=== PATIENT | male | born 1960 | race Caucasian/White ===

== ENCOUNTER 2017-07-17 18:10 | Inpatient (IN) | payer MEDICAID, OTHER ==
[~2017-07-17] VITALS: Ht 172.7 cm; Wt 71.7 kg
[2017-07-17 18:12] VITALS: BP 148/72
[2017-07-17] MEDS ORDERED: LORazepam Inj 2mg/ml 1ml IV ONE (18:15)
[2017-07-17] MEDS ORDERED: [UNRECOGNIZED DRUG - REMARK] (18:21)
--- NOTE | 2017-07-17 19:12 | Emergency Room Report ---
History of Present Illness General Chief Complaint: Fever Source: Patient Present Illness HPI 56-year-old male no significant past medical history presents with fever, chills , cough, runny nose, headache for 1 days. Pt still eating/drinking well. No recent travel. No SOB, cp, abdominal pain, n/v/d. Patient denies any drug or alcohol use, however EMS states when they arrived his house, there was drug needles, and has remained states that he had been doing meth The patient currently awake and alert, not complaining of any neck pain. States that he does have a throbbing headache. Patient states that he gets headaches all the time. Not the worse headache of his life Allergies: Coded Allergies: No Known Allergies (Unverified , 07/17/17) Patient History Past Medical History: see triage record Past Surgical History: none Pertinent Family History: none Reviewed Nursing Documentation: PMH: Agreed, PSxH: Agreed Nursing Documentation-PM Past Medical History: No History, Except For Hx Hypertension: Yes Review of Systems All Other Systems: negative except mentioned in HPI Physical Exam Vital Signs Date Time Temp Pulse Resp B/P (MAP) Pulse Ox O2 Delivery O2 Flow Rate FiO2 07/17/17 18:02 101.8 133 25 169/93 95 Room Air Sp02 EP Interpretation: reviewed, normal General Appearance: alert, GCS 15, mild distress, other - diaphoretic, but awake and alert Head: normocephalic, atraumatic Eyes: bilateral eye normal inspection, bilateral eye PERRL, bilateral eye EOMI ENT: normal ENT inspection, normal pharynx, normal voice, moist mucus membranes Neck: normal inspection, full range of motion, supple Respiratory: normal inspection, lungs clear, normal breath sounds, no respiratory distress, no retraction, no wheezing, speaking full sentences, chest symmetrical Cardiovascular #1: no edema, tachycardia Cardiovascular #2: 2+ radial (R), 2+ radial (L) Gastrointestinal: normal inspection, non tender, soft, non-distended, no guarding Genitourinary: no CVA tenderness Musculoskeletal: normal inspection, back normal, normal range of motion, non- tender Neurologic: normal inspection, alert, oriented x3, responsive, 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 Not hypoxic. PLAN: IV access, labs, lactate, troponin, Blood/Urine Cx, Abx, IVF Anticipate admission to Tele vs. JOSE CC time also includes review of labs, review of EMR, discussion with family and paperwork from SNF, d/w hospitalist CC could include dosing of pressors, additional Abx CC time does not include procedures Medical Decision Making Diagnostic Impression: Primary Impression: Sepsis Additional Impressions: UTI (urinary tract infection) Methamphetamine abuse ER Course 56-year-old male, fever, cough, headache DDX: Viral URI / pneumonia Toxicology, versus withdrawal Plan: Labs, IV fluids ER course: Patient received fluids and Tylenol ceftriaxone for UTI Sepsis Re-examination Time: 7:50PM VS: Temp 99 HR 1191 BP 150/90 RR 20 CVS: RRR Respiratory: Lungs clear bilaterally Peripheral pulses: 2+ radial Capillary refill: <2 seconds Skin exam: warm, dry, no rash, not mottled Disposition: Pt admitted to telemetry DW Dr Sue Please note that this Emergency Department Report was dictated using [employer] Systemspsych[employer] educational technology software, occasionally this can lead to erroneous entry secondary to interpretation by the dictation equipment EKG Diagnostic Results EP Interpretation: Yes Rate: Tachycardic Rhythm: NSR ST Segments: No acute changes ASA given to patient: No Rhythm Strip EP Interpretation: Yes Rate: 120 Rhythm: NSR, no PVCs, no ectopy Chest X-ray CXR: Ordered: Yes 1 view Indication: Chest pain EP interpretation: Yes Interpretation: Cardiomegaly, no infiltrate noted Impression: No acute disease Electronically signed by Mehrdad Anand MD Laboratory Tests Test 07/17/17 18:40 07/17/17 19:15 White Blood Count 16.6 K/UL (4.8-10.8) H Red Blood Count 6.45 M/UL (4.70-6.10) H Hemoglobin 19.1 G/DL (14.2-18.0) *H Hematocrit 57.1 % (42.0-52.0) H Mean Corpuscular Volume 88 FL (80-99) Mean Corpuscular Hemoglobin 29.6 PG (27.0-31.0) Mean Corpuscular Hemoglobin Concent 33.5 G/DL (32.0-36.0) Red Cell Distribution Width 12.8 % (11.6-14.8) Platelet Count 221 K/UL (150-450) Mean Platelet Volume 7.5 FL (6.5-10.1) Neutrophils (%) (Auto) 84.5 % (45.0-75.0) H Lymphocytes (%) (Auto) 5.2 % (20.0-45.0) L Monocytes (%) (Auto) 9.7 % (1.0-10.0) Eosinophils (%) (Auto) 0.0 % (0.0-3.0) Basophils (%) (Auto) 0.6 % (0.0-2.0) Sodium Level 136 MMOL/L (136-145) Potassium Level 4.0 MMOL/L (3.5-5.1) Chloride Level 97 MMOL/L (98-107) L Carbon Dioxide Level 30 MMOL/L (21-32) Anion Gap 9 mmol/L (5-15) Blood Urea Nitrogen 16 mg/dL (7-18) Creatinine 1.7 MG/DL (0.55-1.30) H Estimate Glomerular Filtration Rate 42.2 mL/min (>60) Glucose Level 111 MG/DL (74-106) H Lactic Acid Level 1.70 mmol/L (0.66-2.22) Calcium Level 9.4 MG/DL (8.5-10.1) Total Bilirubin 0.3 MG/DL (0.2-1.0) Aspartate Amino Transferase (AST) 32 U/L (15-37) Alanine Aminotransferase (ALT) 40 U/L (12-78) Alkaline Phosphatase 66 U/L (46-116) Troponin I 0.052 ng/mL (0.000-0.056) Total Protein 7.2 G/DL (6.4-8.2) Albumin 3.2 G/DL (3.4-5.0) L Globulin 4.0 g/dL Albumin/Globulin Ratio 0.8 (1.0-2.7) L Salicylates Level 13.3 ug/mL (2.8-20) Acetaminophen Level < 2 MCG/ML (10-30) L Serum Alcohol < 3 mg/dL Urine Color Yellow Urine Appearance Cloudy Urine pH 6 (4.5-8.0) Urine Specific [place] 1.020 (1.005-1.035) Urine Protein 3+ (NEGATIVE) H Urine Glucose (UA) Negative (NEGATIVE) Urine Ketones Negative (NEGATIVE) Urine Occult Blood 3+ (NEGATIVE) H Urine Nitrite Negative (NEGATIVE) Urine Bilirubin Negative (NEGATIVE) Urine Urobilinogen 1 MG/DL (0.0-1.0) H Urine Leukocyte Esterase 3+ (NEGATIVE) H Urine RBC 2-4 /HPF (0 - 0) H Urine WBC Tntc /HPF (0 - 0) H Urine Squamous Epithelial Cells None /LPF (NONE/OCC) Urine Bacteria Moderate /HPF (NONE) H Urine Opiates Screen Pending Urine Barbiturates Screen Pending Phencyclidine (PCP) Screen Pending Urine Amphetamines Screen Pending Urine Benzodiazepines Screen Pending Urine Cocaine Screen Pending Urine Marijuana (THC) Screen Pending Last Vital Signs Date Time Temp Pulse Resp B/P (MAP) Pulse Ox O2 Delivery O2 Flow Rate FiO2 07/17/17 18:12 101.8 127 24 148/72 97 Room Air Disposition: ADMITTED INPATIENT Condition: Mehrdad Hernandez M.D. Jul 17, 2017 19:12
[2017-07-17 19:24] LABS: BASOPHILS % (AUTO) 0.6 % (0.0-2.0); HEMATOCRIT 57.1 % (42.0-52.0); LYMPHOCYTES % (AUTO) 5.2 % (20.0-45.0); MEAN CORPUSCULAR VOLUME 88 FL (80-99); MONOCYTES % (AUTO) 9.7 % (1.0-10.0); NEUTROPHILS % (AUTO) 84.5 % (45.0-75.0); PLATELET COUNT 221 K/UL (150-450); RED BLOOD COUNT 6.45 M/UL (4.70-6.10); RED CELL DISTRIBUTION WIDTH 12.8 % (11.6-14.8); WHITE BLOOD COUNT 16.6 K/UL (4.8-10.8)
[2017-07-17 19:28] LABS: HEMOGLOBIN 19.1 G/DL (14.2-18.0)
[2017-07-17 19:30] VITALS: BP 155/102
[2017-07-17 19:34] LABS: APPEARANCE,URINE CLOUDY; BILIRUBIN, URINE NEGATIVE (NEGATIVE); GLUCOSE, URINE (UA) NEGATIVE (NEGATIVE); KETONES,URINE NEGATIVE (NEGATIVE); LEUKOCYTE ESTERASE ,URINE 3+ (NEGATIVE); NITRITE,URINE NEGATIVE (NEGATIVE); PH,URINE 6 (4.5-8.0); PROTEIN,URINE 3+ (NEGATIVE); UROBILINOGEN,URINE 1 MG/DL (0.0-1.0)
[2017-07-17 19:35] LABS: ANION GAP 9 mmol/L (5-15); BLOOD UREA NITROGEN 16 mg/dL (7-18); CALCIUM 9.4 MG/DL (8.5-10.1); CARBON DIOXIDE 30 MMOL/L (21-32); CHLORIDE 97 MMOL/L (98-107); CREATININE 1.7 MG/DL (0.55-1.30); SODIUM 136 MMOL/L (136-145)
[2017-07-17 19:35] LABS: COLOR,URINE YELLOW
[2017-07-17 19:50] LABS: ALANINE AMINOTRANSFERASE 40 U/L (12-78); ALBUMIN 3.2 G/DL (3.4-5.0); ALBUMIN/GLOBULIN RATIO 0.8 (1.0-2.7); ALKALINE PHOSPHATASE 66 U/L (46-116); ASPARTATE AMINO TRANSFERASE 32 U/L (15-37); BILIRUBIN,TOTAL 0.3 MG/DL (0.2-1.0)
[2017-07-17] MEDS ORDERED: cefTRIAXone 1 GM in NS 55 ML IVPB ONE (20:00)
[2017-07-17 20:30] VITALS: BP 133/82
[2017-07-17 21:30] VITALS: BP 126/79
[2017-07-17 22:30] VITALS: BP 123/79
[2017-07-17 23:30] VITALS: BP 127/81
[2017-07-17] MEDS ORDERED: Miralax 17gm pkt ORAL PRN (23:30)
[2017-07-17] MEDS ORDERED: Albuterol/Ipratropium 3ml neb HHN PRN (23:30)
[2017-07-17] MEDS ORDERED: Morphine Sulfate 2mg/ml Inj IVP PRN (23:30)
[2017-07-18] MEDS ORDERED: Vancomycin 1 GM in D5W 275 ML IV SCH (00:30)
[2017-07-18 01:30] VITALS: BP 132/81
[2017-07-18 02:30] VITALS: BP 140/86
[2017-07-18] MEDS: Vancomycin 1250mg/D5W 250ml IVPB SCH (04:46)
[2017-07-18 08:00] VITALS: BP 148/103
[2017-07-18] MEDS: Heparin 5000 units/ml inj SUBQ SCH ×2 (08:27→20:37)
[2017-07-18] MEDS ORDERED: Cefepime HCl 2 GM in D5W 110 ML IV SCH (09:00)
--- NOTE | 2017-07-18 09:27 | History and Physical ---
History of Present Illness General Date patient seen: Jul 18, 2017 Time patient seen: 09:00 Reason for Hospitalization: Fever, headache Present Illness HPI 56y/old male with no significant PMH presented with fever, chills, cough, runny nose, headache for 1 week. Symptoms have progressively worsen in 1 week. Headache 8/10, constant, + nausea and vomiting, neck pain, photophobia and phonophobia. +sick contacts. Upon arrival febrile, tachycardic, tachypneic Lab work revealed [id number] UA+ pyuria, mod.bacteria, no urinary symptoms urine tox screen + amphetamines, BZD CXR negative troponin negative ECG-ST, no acute ischemic changes BUN/creat-16/1.7 Lactic acid-1.7 rapid influenza screen test negative No SOB, CP, abdominal pain, n/v/d. No recent traveling Paramedics reported seeing needles in the house, but patient denied meth use Patient was admitted for further management Allergies: Coded Allergies: No Known Allergies (Unverified , 07/17/17) Medication History Miscellaneous Medications [unk BP med], (Reported) Patient History History Provided By: Patient Healthcare decision maker Resuscitation status Full Code Advanced Directive on File Past Medical/Surgical History Past Medical/Surgical History: (1) Methamphetamine abuse Review of Systems Constitutional: Reports: fever, malaise, weakness Eye: Reports: nose congestion ENT: Reports: nasal discharge Respiratory: Reports: cough Cardiovascular: Reports: no symptoms Gastrointestinal: Reports: no symptoms Genitourinary: Reports: no symptoms Musculoskeletal: Reports: no symptoms Skin: Reports: no symptoms Psychiatric: Reports: no symptoms Neurological: Reports: see HPI Endocrine: Reports: no symptoms Hematologic/Lymphatic: Reports: no symptoms Physical Exam General Appearance: WD/WN, other - in mild distress Lines, tubes and drains: peripheral HEENT: normocephalic, atraumatic, anicteric, mucous membranes moist, thrush - tongue with white patches Neck: normal alignment, normal inspection Respiratory/Chest: lungs clear, normal breath sounds, no respiratory distress, no accessory muscle use Cardiovascular/Chest: normal peripheral pulses, regular rhythm, tachycardia - ST on tele Abdomen: normal bowel sounds, non tender, soft Extremities: normal range of motion, non-tender, no calf tenderness, normal capillary refill Skin Exam: warm/dry Neurologic: alert, oriented x 3, responsive Musculoskeletal: normal muscle bulk Last 24 Hour Vital Signs Date Time Temp Pulse Resp B/P (MAP) Pulse Ox O2 Delivery O2 Flow Rate FiO2 07/18/17 04:00 114 07/18/17 02:45 98.1 95 19 140/86 99 Room Air 1.0 07/18/17 02:30 98.1 95 19 140/86 99 Room Air 07/18/17 01:30 98.3 99 18 132/81 98 Room Air 07/17/17 23:30 98.1 97 22 127/81 99 Nasal Cannula 1.0 07/17/17 22:30 98.3 102 18 123/79 100 Nasal Cannula 1.0 07/17/17 21:30 98.6 107 23 126/79 98 Nasal Cannula 1.0 07/17/17 20:30 98.9 112 20 133/82 98 Nasal Cannula 1.0 07/17/17 19:52 99.1 07/17/17 19:30 99.1 120 23 155/102 99 Nasal Cannula 1.0 07/17/17 18:12 101.8 127 24 148/72 97 Room Air 07/17/17 18:02 101.8 133 25 169/93 95 Room Air Intake and Output 07/17/17 07/18/17 19:00 07:00 Intake Total 100 ml 2055 ml Output Total 150 ml Balance 100 ml 1905 ml Intake Oral 100 ml IV Total 2055 ml Output Urine Total 150 ml Laboratory Tests Test 07/17/17 18:40 07/17/17 19:15 White Blood Count 16.6 K/UL (4.8-10.8) H Red Blood Count 6.45 M/UL (4.70-6.10) H Hemoglobin 19.1 G/DL (14.2-18.0) *H Hematocrit 57.1 % (42.0-52.0) H Mean Corpuscular Volume 88 FL (80-99) Mean Corpuscular Hemoglobin 29.6 PG (27.0-31.0) Mean Corpuscular Hemoglobin Concent 33.5 G/DL (32.0-36.0) Red Cell Distribution Width 12.8 % (11.6-14.8) Platelet Count 221 K/UL (150-450) Mean Platelet Volume 7.5 FL (6.5-10.1) Neutrophils (%) (Auto) 84.5 % (45.0-75.0) H Lymphocytes (%) (Auto) 5.2 % (20.0-45.0) L Monocytes (%) (Auto) 9.7 % (1.0-10.0) Eosinophils (%) (Auto) 0.0 % (0.0-3.0) Basophils (%) (Auto) 0.6 % (0.0-2.0) Sodium Level 136 MMOL/L (136-145) Potassium Level 4.0 MMOL/L (3.5-5.1) Chloride Level 97 MMOL/L (98-107) L Carbon Dioxide Level 30 MMOL/L (21-32) Anion Gap 9 mmol/L (5-15) Blood Urea Nitrogen 16 mg/dL (7-18) Creatinine 1.7 MG/DL (0.55-1.30) H Estimat Glomerular Filtration Rate 42.2 mL/min (>60) Glucose Level 111 MG/DL (74-106) H Lactic Acid Level 1.70 mmol/L (0.66-2.22) Calcium Level 9.4 MG/DL (8.5-10.1) Total Bilirubin 0.3 MG/DL (0.2-1.0) Aspartate Amino Transf (AST/SGOT) 32 U/L (15-37) Alanine Aminotransferase (ALT/SGPT) 40 U/L (12-78) Alkaline Phosphatase 66 U/L (46-116) Troponin I 0.052 ng/mL (0.000-0.056) Total Protein 7.2 G/DL (6.4-8.2) Albumin 3.2 G/DL (3.4-5.0) L Globulin 4.0 g/dL Albumin/Globulin Ratio 0.8 (1.0-2.7) L Salicylates Level 13.3 ug/mL (2.8-20) Acetaminophen Level < 2 MCG/ML (10-30) L Serum Alcohol < 3 mg/dL Urine Color Yellow Urine Appearance Cloudy Urine pH 6 (4.5-8.0) Urine Specific [place] 1.020 (1.005-1.035) Urine Protein 3+ (NEGATIVE) H Urine Glucose (UA) Negative (NEGATIVE) Urine Ketones Negative (NEGATIVE) Urine Occult Blood 3+ (NEGATIVE) H Urine Nitrite Negative (NEGATIVE) Urine Bilirubin Negative (NEGATIVE) Urine Urobilinogen 1 MG/DL (0.0-1.0) H Urine Leukocyte Esterase 3+ (NEGATIVE) H Urine RBC 2-4 /HPF (0 - 0) H Urine WBC Tntc /HPF (0 - 0) H Urine Squamous Epithelial Cells None /LPF (NONE/OCC) Urine Bacteria Moderate /HPF (NONE) H Urine Opiates Screen Negative (NEGATIVE) Urine Barbiturates Screen Negative (NEGATIVE) Phencyclidine (PCP) Screen Negative (NEGATIVE) Urine Amphetamines Screen Positive (NEGATIVE) H Urine Benzodiazepines Screen Positive (NEGATIVE) H Urine Cocaine Screen Negative (NEGATIVE) Urine Marijuana (THC) Screen Negative (NEGATIVE) Height (Feet): 5 Height (Inches): 8.00 Weight (Pounds): 158 Medications Current Medications Medications (Trade) Dose Ordered Sig/Charla Route PRN Reason Start Time Stop Time Status Last Admin Dose Admin Acetaminophen (Tylenol) 650 mg Q4H PRN ORAL fever 07/17/17 23:30 08/16/17 23:29 Albuterol/ Ipratropium (Albuterol/ Ipratropium) 3 ml EVERY 4 HOURS PRN HHN Shortness of Breath 07/17/17 23:30 07/22/17 23:29 Cefepime HCl 2 gm/ Dextrose 110 ml @ 220 mls/hr Q24H IV 07/18/17 09:00 07/25/17 08:59 Heparin Sodium (Porcine) (Heparin 5000 units/ml) 5,000 units EVERY 12 HOURS SUBQ 07/18/17 09:00 08/17/17 08:59 07/18/17 08:27 Morphine Sulfate (Morphine Sulfate) 2 mg EVERY 4 HOURS PRN IVP Moderate Pain (Pain Scale 4-6) 07/17/17 23:30 07/24/17 23:29 07/18/17 08:30 Ondansetron HCl (Zofran) 4 mg Q6H PRN IVP Nausea & Vomiting 07/17/17 23:30 08/16/17 23:29 Phenazopyridine HCl (Pyridium) 100 mg DAILY PRN ORAL dysuria 07/17/17 23:30 08/16/17 23:29 Polyethylene Glycol (Miralax) 17 gm DAILYPRN PRN ORAL Constipation 07/17/17 23:30 08/16/17 23:29 Temazepam (Restoril) 15 mg HSPRN PRN ORAL Insomnia 07/17/17 23:30 07/24/17 23:29 Vancomycin HCl (Vanco rx to dose) 1 ea DAILY PRN MISC per protocol 07/18/17 02:30 08/17/17 02:29 Vancomycin HCl/ Dextrose 250 ml @ 166.667 mls/hr Q24H IVPB 07/18/17 04:00 07/23/17 03:59 07/18/17 04:46 Assessment/Plan Assessment/Plan ASSESSMENT Viral syndrome Probably influenza possible sepsis Headache r/o aseptic meningitis possible UTI JOAQUIN vs CRI tongue with white patches, ? atypical oral thrush amphetamine abuse PLAN OF CARE empiric abx empiric Tamiflu ID and neuro follow CT head stat LP stat with CSF analysis HIV test hepatitis panel serology as per ID empiric Nystatin, per ID - atypical oral thrush, r/o HIV pain management Pyridium prn a/emetic prn DVT prophylaxis monitor renal parameters, lytes, correct lytes as seeded, avoid nephrotoxic case discussed and evaluated by supervising physician Bandar (Willa)Rossana NP Jul 18, 2017 09:27
--- NOTE | 2017-07-18 09:34 | Diagnostic Imaging Report ---
Indication: Chest pain Technique: One view of the chest Comparison: none Findings: Heart is enlarged. Lungs and pleural spaces are clear. There are are postsurgical changes of the left shoulder Impression: Cardiomegaly. No acute process
--- NOTE | 2017-07-18 09:59 | Consultation ---
History of Present Illness General Date patient seen: Jul 18, 2017 Time patient seen: 09:57 Chief Complaint: Fever Present Illness HPI 56 y/o M with hx of HTN presents to ED on 07/17 with fevers, chills, cough, runny nose and SALGUERO. Symptoms have progressively worsen in 1 week. Headache 8/10, constant, with associated nausea and vomiting, neck pain, photophobia and phonophobia. +sick contacts. Denies SOB, CP, abd pain, d, recent travel Patient denies any drug or alcohol use, however EMS states when they arrived his house, there was drug needles, and has remained states that he had been doing meth; however he denied drug use to me. FEbrile up to 101.8, leukocytosis up to 16.6/ Allergies: Coded Allergies: No Known Allergies (Unverified , 07/17/17) Medication History Miscellaneous Medications [unk BP med], (Reported) Patient History Healthcare decision maker Resuscitation status Full Code Advanced Directive on File Patient History Narrative PMhs: as above SH: reviewed Fhx: non contributory Review of Systems All Other Systems: negative except mentioned in HPI Physical Exam Physical Exam Narrative General Appearance: alert,mild distress due to headache Head: normocephalic, atraumatic Eyes: bilateral eye normal inspection, bilateral eye PERRL, bilateral eye EOMI ENT: normal ENT inspection, normal pharynx, normal voice, moist mucus membranes ; tongue with white patches Neck: normal inspection, full range of motion, supple Respiratory: normal inspection, lungs clear, normal breath sounds, no respiratory distress, no retraction, no wheezing, speaking full sentences, chest symmetrical Cardiovascular : no edema, tachycardia) Gastrointestinal: normal inspection, non tender, soft, non-distended, no guarding Genitourinary: no CVA tenderness Musculoskeletal: normal inspection, back normal, normal range of motion, non- tender Skin: flushed skin, blanching in torso and back Last 24 Hour Vital Signs Date Time Temp Pulse Resp B/P (MAP) Pulse Ox O2 Delivery O2 Flow Rate FiO2 07/18/17 09:00 98.1 07/18/17 04:00 114 07/18/17 02:45 98.1 95 19 140/86 99 Room Air 1.0 07/18/17 02:30 98.1 95 19 140/86 99 Room Air 07/18/17 01:30 98.3 99 18 132/81 98 Room Air 07/17/17 23:30 98.1 97 22 127/81 99 Nasal Cannula 1.0 07/17/17 22:30 98.3 102 18 123/79 100 Nasal Cannula 1.0 07/17/17 21:30 98.6 107 23 126/79 98 Nasal Cannula 1.0 07/17/17 20:30 98.9 112 20 133/82 98 Nasal Cannula 1.0 07/17/17 19:52 99.1 07/17/17 19:30 99.1 120 23 155/102 99 Nasal Cannula 1.0 07/17/17 18:12 101.8 127 24 148/72 97 Room Air 07/17/17 18:02 101.8 133 25 169/93 95 Room Air Intake and Output 07/17/17 07/18/17 19:00 07:00 Intake Total 100 ml 2055 ml Output Total 150 ml Balance 100 ml 1905 ml Intake Oral 100 ml IV Total 2055 ml Output Urine Total 150 ml Laboratory Tests Test 07/17/17 18:40 07/17/17 19:15 White Blood Count 16.6 K/UL (4.8-10.8) H Red Blood Count 6.45 M/UL (4.70-6.10) H Hemoglobin 19.1 G/DL (14.2-18.0) *H Hematocrit 57.1 % (42.0-52.0) H Mean Corpuscular Volume 88 FL (80-99) Mean Corpuscular Hemoglobin 29.6 PG (27.0-31.0) Mean Corpuscular Hemoglobin Concent 33.5 G/DL (32.0-36.0) Red Cell Distribution Width 12.8 % (11.6-14.8) Platelet Count 221 K/UL (150-450) Mean Platelet Volume 7.5 FL (6.5-10.1) Neutrophils (%) (Auto) 84.5 % (45.0-75.0) H Lymphocytes (%) (Auto) 5.2 % (20.0-45.0) L Monocytes (%) (Auto) 9.7 % (1.0-10.0) Eosinophils (%) (Auto) 0.0 % (0.0-3.0) Basophils (%) (Auto) 0.6 % (0.0-2.0) Sodium Level 136 MMOL/L (136-145) Potassium Level 4.0 MMOL/L (3.5-5.1) Chloride Level 97 MMOL/L (98-107) L Carbon Dioxide Level 30 MMOL/L (21-32) Anion Gap 9 mmol/L (5-15) Blood Urea Nitrogen 16 mg/dL (7-18) Creatinine 1.7 MG/DL (0.55-1.30) H Estimat Glomerular Filtration Rate 42.2 mL/min (>60) Glucose Level 111 MG/DL (74-106) H Lactic Acid Level 1.70 mmol/L (0.66-2.22) Calcium Level 9.4 MG/DL (8.5-10.1) Total Bilirubin 0.3 MG/DL (0.2-1.0) Aspartate Amino Transf (AST/SGOT) 32 U/L (15-37) Alanine Aminotransferase (ALT/SGPT) 40 U/L (12-78) Alkaline Phosphatase 66 U/L (46-116) Troponin I 0.052 ng/mL (0.000-0.056) Total Protein 7.2 G/DL (6.4-8.2) Albumin 3.2 G/DL (3.4-5.0) L Globulin 4.0 g/dL Albumin/Globulin Ratio 0.8 (1.0-2.7) L Salicylates Level 13.3 ug/mL (2.8-20) Acetaminophen Level < 2 MCG/ML (10-30) L Serum Alcohol < 3 mg/dL Urine Color Yellow Urine Appearance Cloudy Urine pH 6 (4.5-8.0) Urine Specific [place] 1.020 (1.005-1.035) Urine Protein 3+ (NEGATIVE) H Urine Glucose (UA) Negative (NEGATIVE) Urine Ketones Negative (NEGATIVE) Urine Occult Blood 3+ (NEGATIVE) H Urine Nitrite Negative (NEGATIVE) Urine Bilirubin Negative (NEGATIVE) Urine Urobilinogen 1 MG/DL (0.0-1.0) H Urine Leukocyte Esterase 3+ (NEGATIVE) H Urine RBC 2-4 /HPF (0 - 0) H Urine WBC Tntc /HPF (0 - 0) H Urine Squamous Epithelial Cells None /LPF (NONE/OCC) Urine Bacteria Moderate /HPF (NONE) H Urine Opiates Screen Negative (NEGATIVE) Urine Barbiturates Screen Negative (NEGATIVE) Phencyclidine (PCP) Screen Negative (NEGATIVE) Urine Amphetamines Screen Positive (NEGATIVE) H Urine Benzodiazepines Screen Positive (NEGATIVE) H Urine Cocaine Screen Negative (NEGATIVE) Urine Marijuana (THC) Screen Negative (NEGATIVE) Height (Feet): 5 Height (Inches): 8.00 Weight (Pounds): 158 Medications Current Medications Medications (Trade) Dose Ordered Sig/Charla Route PRN Reason Start Time Stop Time Status Last Admin Dose Admin Acetaminophen (Tylenol) 650 mg Q4H PRN ORAL fever 07/17/17 23:30 08/16/17 23:29 Albuterol/ Ipratropium (Albuterol/ Ipratropium) 3 ml EVERY 4 HOURS PRN HHN Shortness of Breath 07/17/17 23:30 07/22/17 23:29 Cefepime HCl 2 gm/ Dextrose 110 ml @ 220 mls/hr Q24H IV 07/18/17 09:00 07/25/17 08:59 07/18/17 09:34 Heparin Sodium (Porcine) (Heparin 5000 units/ml) 5,000 units EVERY 12 HOURS SUBQ 07/18/17 09:00 08/17/17 08:59 07/18/17 08:27 Morphine Sulfate (Morphine Sulfate) 2 mg EVERY 4 HOURS PRN IVP Moderate Pain (Pain Scale 4-6) 07/17/17 23:30 07/24/17 23:29 07/18/17 08:30 Ondansetron HCl (Zofran) 4 mg Q6H PRN IVP Nausea & Vomiting 07/17/17 23:30 08/16/17 23:29 Phenazopyridine HCl (Pyridium) 100 mg DAILY PRN ORAL dysuria 07/17/17 23:30 08/16/17 23:29 Polyethylene Glycol (Miralax) 17 gm DAILYPRN PRN ORAL Constipation 07/17/17 23:30 08/16/17 23:29 Temazepam (Restoril) 15 mg HSPRN PRN ORAL Insomnia 07/17/17 23:30 07/24/17 23:29 Vancomycin HCl (Vanco rx to dose) 1 ea DAILY PRN MISC per protocol 07/18/17 02:30 08/17/17 02:29 Vancomycin HCl/ Dextrose 250 ml @ 166.667 mls/hr Q24H IVPB 07/18/17 04:00 07/23/17 03:59 07/18/17 04:46 Assessment/Plan Assessment/Plan Abx: IV Vanco /3- Cefepime /3- Ceftriaxone x1 07/17 Assessment: Viral syndrome- suspect Influenza despite neg screen test( sensitive only 60-70% ) -? drug withdrawal vs bacteremia; r/o acute HIV -CXR: Cardiomegaly. No acute process -Bcx p HEADACHE- suspect aseptic meningitis to viral process- lower suspicion for bacterial meningitis Fever/leukocytosis Tongue white patches- ?thrush- not classical; r/o HIV pyuria, no UTI symptoms -u/a WBC TNCT, nit neg, leik +3; ucx p JOAQUIN Meth use (denied to me) PLan: -Continue empiric IV Vancomycin #1 and switch Cefepime to Ceftriaxone 2g IV bid pending Bcx and CSF -Start empiric Tamiflu (high suspicion for Flu) -Influenza PCR; droplets precautions -Stat Head CT -Recommend neuro eval and LP -CSF analysis, cx, WNV ab, VDRL -Check: HIV ab and VL, UDS, ESR/CRP, hepatitis panel, WNV ab, RPR -empiric nystatin swallow and monitor tongue lesions if improvement -f/u cx -Monitor CBC/BMP, temperatures Thank you for this consultation. Discussed with RN and primary team. Yamileth Myles M.D. Jul 18, 2017 09:59
[2017-07-18 12:00] VITALS: BP 141/99
[2017-07-18 12:34] LABS: BASOPHILS % (AUTO) 0.8 % (0.0-2.0); EOSINOPHILS % (AUTO) 0.2 % (0.0-3.0); HEMATOCRIT 47.9 % (42.0-52.0); HEMOGLOBIN 15.9 G/DL (14.2-18.0); LYMPHOCYTES % (AUTO) 9.5 % (20.0-45.0); MEAN CORPUSCULAR VOLUME 87 FL (80-99); MONOCYTES % (AUTO) 9.5 % (1.0-10.0); PLATELET COUNT 200 K/UL (150-450); RED BLOOD COUNT 5.48 M/UL (4.70-6.10); RED CELL DISTRIBUTION WIDTH 12.6 % (11.6-14.8); WHITE BLOOD COUNT 8.4 K/UL (4.8-10.8)
[2017-07-18] MEDS ORDERED: Morphine Sulfate 4mg/ml Inj ONE (12:48)
[2017-07-18 12:50] LABS: ALANINE AMINOTRANSFERASE 33 U/L (12-78); ALBUMIN 2.4 G/DL (3.4-5.0); ALBUMIN/GLOBULIN RATIO 0.7 (1.0-2.7); ALKALINE PHOSPHATASE 52 U/L (46-116); ANION GAP 7 mmol/L (5-15); ASPARTATE AMINO TRANSFERASE 22 U/L (15-37); BILIRUBIN,TOTAL 0.2 MG/DL (0.2-1.0); BLOOD UREA NITROGEN 17 mg/dL (7-18); CALCIUM 8.2 MG/DL (8.5-10.1); CARBON DIOXIDE 27 MMOL/L (21-32); CHLORIDE 99 MMOL/L (98-107); CREATININE 1.5 MG/DL (0.55-1.30); SODIUM 133 MMOL/L (136-145)
--- NOTE | 2017-07-18 12:56 | Neurology Progress Note ---
Objective Physical Exam Last Vital Signs Date Time Temp Pulse Resp B/P (MAP) Pulse Ox O2 Delivery O2 Flow Rate FiO2 07/18/17 09:00 98.1 07/18/17 08:00 120 07/18/17 08:00 19 148/103 99 Room Air 07/18/17 02:45 1.0 Laboratory Tests Test 07/17/17 18:40 07/17/17 19:15 07/18/17 12:20 White Blood Count 16.6 K/UL (4.8-10.8) H 8.4 K/UL (4.8-10.8) Red Blood Count 6.45 M/UL (4.70-6.10) H 5.48 M/UL (4.70-6.10) Hemoglobin 19.1 G/DL (14.2-18.0) *H 15.9 G/DL (14.2-18.0) Hematocrit 57.1 % (42.0-52.0) H 47.9 % (42.0-52.0) Mean Corpuscular Volume 88 FL (80-99) 87 FL (80-99) Mean Corpuscular Hemoglobin 29.6 PG (27.0-31.0) 29.0 PG (27.0-31.0) Mean Corpuscular Hemoglobin Concent 33.5 G/DL (32.0-36.0) 33.2 G/DL (32.0-36.0) Red Cell Distribution Width 12.8 % (11.6-14.8) 12.6 % (11.6-14.8) Platelet Count 221 K/UL (150-450) 200 K/UL (150-450) Mean Platelet Volume 7.5 FL (6.5-10.1) 8.1 FL (6.5-10.1) Neutrophils (%) (Auto) 84.5 % (45.0-75.0) H 80.0 % (45.0-75.0) H Lymphocytes (%) (Auto) 5.2 % (20.0-45.0) L 9.5 % (20.0-45.0) L Monocytes (%) (Auto) 9.7 % (1.0-10.0) 9.5 % (1.0-10.0) Eosinophils (%) (Auto) 0.0 % (0.0-3.0) 0.2 % (0.0-3.0) Basophils (%) (Auto) 0.6 % (0.0-2.0) 0.8 % (0.0-2.0) Sodium Level 136 MMOL/L (136-145) 133 MMOL/L (136-145) L Potassium Level 4.0 MMOL/L (3.5-5.1) 4.0 MMOL/L (3.5-5.1) Chloride Level 97 MMOL/L (98-107) L 99 MMOL/L (98-107) Carbon Dioxide Level 30 MMOL/L (21-32) 27 MMOL/L (21-32) Anion Gap 9 mmol/L (5-15) 7 mmol/L (5-15) Blood Urea Nitrogen 16 mg/dL (7-18) 17 mg/dL (7-18) Creatinine 1.7 MG/DL (0.55-1.30) H 1.5 MG/DL (0.55-1.30) H Estimat Glomerular Filtration Rate 42.2 mL/min (>60) 48.8 mL/min (>60) Glucose Level 111 MG/DL (74-106) H 143 MG/DL (74-106) H Lactic Acid Level 1.70 mmol/L (0.66-2.22) Calcium Level 9.4 MG/DL (8.5-10.1) 8.2 MG/DL (8.5-10.1) L Total Bilirubin 0.3 MG/DL (0.2-1.0) 0.2 MG/DL (0.2-1.0) Aspartate Amino Transf (AST/SGOT) 32 U/L (15-37) 22 U/L (15-37) Alanine Aminotransferase (ALT/SGPT) 40 U/L (12-78) 33 U/L (12-78) Alkaline Phosphatase 66 U/L (46-116) 52 U/L (46-116) Troponin I 0.052 ng/mL (0.000-0.056) Total Protein 7.2 G/DL (6.4-8.2) 5.9 G/DL (6.4-8.2) L Albumin 3.2 G/DL (3.4-5.0) L 2.4 G/DL (3.4-5.0) L Globulin 4.0 g/dL 3.5 g/dL Albumin/Globulin Ratio 0.8 (1.0-2.7) L 0.7 (1.0-2.7) L Salicylates Level 13.3 ug/mL (2.8-20) Acetaminophen Level < 2 MCG/ML (10-30) L Serum Alcohol < 3 mg/dL Urine Color Yellow Urine Appearance Cloudy Urine pH 6 (4.5-8.0) Urine Specific Talent 1.020 (1.005-1.035) Urine Protein 3+ (NEGATIVE) H Urine Glucose (UA) Negative (NEGATIVE) Urine Ketones Negative (NEGATIVE) Urine Occult Blood 3+ (NEGATIVE) H Urine Nitrite Negative (NEGATIVE) Urine Bilirubin Negative (NEGATIVE) Urine Urobilinogen 1 MG/DL (0.0-1.0) H Urine Leukocyte Esterase 3+ (NEGATIVE) H Urine RBC 2-4 /HPF (0 - 0) H Urine WBC Tntc /HPF (0 - 0) H Urine Squamous Epithelial Cells None /LPF (NONE/OCC) Urine Bacteria Moderate /HPF (NONE) H Urine Opiates Screen Negative (NEGATIVE) Urine Barbiturates Screen Negative (NEGATIVE) Phencyclidine (PCP) Screen Negative (NEGATIVE) Urine Amphetamines Screen Positive (NEGATIVE) H Urine Benzodiazepines Screen Positive (NEGATIVE) H Urine Cocaine Screen Negative (NEGATIVE) Urine Marijuana (THC) Screen Negative (NEGATIVE) Impression/Recommendations Recommendations #[id number] stat CT brain stat LP d/w staff MILVIA MELGAR Jul 18, 2017 12:56
[2017-07-18] MEDS: Morphine Sulfate 4mg/ml Inj IVP PRN ×2 (13:10→17:42)
[2017-07-18 13:24] LABS: INR 1.1 (0.9-1.1)
[2017-07-18] MEDS: Nystatin Susp 500,000 units/5ml ORAL SCH ×3 (14:36→20:32)
[2017-07-18] MEDS: cefTRIAXone 2 GM in NS 55 ML IVPB SCH (14:36)
--- NOTE | 2017-07-18 15:57 | Cardiology Report ---
APPROVED REPORT EKG Measurement Heart [id number] Sinus tachycardia Pulmonary disease pattern Incomplete right bundle branch block Left anterior fascicular block Moderate voltage criteria for LVH, may be normal variant Abnormal ECG
[2017-07-18 16:00] VITALS: BP 138/83
[2017-07-18 20:00] VITALS: BP 154/112
[2017-07-19] VITALS: BP 168/108
[2017-07-19] MEDS: cefTRIAXone 2 GM in NS 55 ML IVPB SCH ×2 (01:44→13:31)
[2017-07-19] MEDS: Morphine Sulfate 4mg/ml Inj IVP PRN ×3 (03:09→13:45)
[2017-07-19 04:00] VITALS: BP 182/126
[2017-07-19] MEDS: Vancomycin 1250mg/D5W 250ml IVPB SCH (04:10)
[2017-07-19 07:12] LABS: BASOPHILS % (AUTO) 0.7 % (0.0-2.0); EOSINOPHILS % (AUTO) 1.3 % (0.0-3.0); HEMATOCRIT 48.3 % (42.0-52.0); HEMOGLOBIN 16.2 G/DL (14.2-18.0); LYMPHOCYTES % (AUTO) 17.3 % (20.0-45.0); MEAN CORPUSCULAR VOLUME 89 FL (80-99); MONOCYTES % (AUTO) 16.5 % (1.0-10.0); NEUTROPHILS % (AUTO) 64.2 % (45.0-75.0); PLATELET COUNT 209 K/UL (150-450); RED BLOOD COUNT 5.46 M/UL (4.70-6.10); RED CELL DISTRIBUTION WIDTH 12.7 % (11.6-14.8); WHITE BLOOD COUNT 6.3 K/UL (4.8-10.8)
[2017-07-19 07:53] LABS: ALANINE AMINOTRANSFERASE 43 U/L (12-78); ALBUMIN 2.8 G/DL (3.4-5.0); ALBUMIN/GLOBULIN RATIO 0.7 (1.0-2.7); ALKALINE PHOSPHATASE 55 U/L (46-116); ANION GAP 7 mmol/L (5-15); ASPARTATE AMINO TRANSFERASE 34 U/L (15-37); BILIRUBIN,TOTAL 0.2 MG/DL (0.2-1.0); BLOOD UREA NITROGEN 14 mg/dL (7-18); CALCIUM 8.7 MG/DL (8.5-10.1); CARBON DIOXIDE 28 MMOL/L (21-32); CHLORIDE 100 MMOL/L (98-107); CREATININE 1.3 MG/DL (0.55-1.30); POTASSIUM 3.7 MMOL/L (3.5-5.1); SODIUM 135 MMOL/L (136-145)
[2017-07-19 08:00] VITALS: BP 165/120
[2017-07-19] MEDS: Nystatin Susp 500,000 units/5ml ORAL SCH ×4 (08:44→20:48)
[2017-07-19] MEDS: cloNIDine 0.2mg Tab ORAL PRN (08:45)
[2017-07-19] MEDS: Heparin 5000 units/ml inj SUBQ SCH ×2 (08:52→20:50)
--- NOTE | 2017-07-19 09:07 | Diagnostic Imaging Report ---
Indication: Reason For Exam: H/A Technique: Continuous helical CT scanning of the head was performed without intravenous contrast material. Axial and coronal 5 mm sections were generated. Radiation dose was minimized using automated exposure control Dose: Total Dose Length Product - DLP 1534.[address] Dose Index - CTDIvol(s) 70.38 mGy. Comparison: none Findings: The ventricular system is normal in size and configuration. There is no shift of midline structures. No abnormal extra-axial fluid collections are noted. There is no evidence of intracerebral bleeding. No other abnormal high or low density areas are noted within the brain. Intact calvarium. Visualized orbits and sinuses are unremarkable. Normal burt-white differentiation. Impression: Normal CT scan of the head without contrast material. This agrees with the preliminary interpretation provided overnight by [facility] teleradiology service. The CT scanner at [facility] is accredited by the [employer] and the scans are performed using protocols designed to limit radiation exposure to as low as reasonably achievable to attain images of sufficient resolution adequate for diagnostic evaluation.
[2017-07-19 12:00] VITALS: BP 151/115
--- NOTE | 2017-07-19 12:31 | Pulmonology Progress Note ---
Assessment/Plan Assessment/Plan ASSESSMENT Viral syndrome Probably influenza possible sepsis Headache r/o aseptic meningitis possible UTI JOAQUIN tongue with white patches, ? atypical oral thrush amphetamine abuse PLAN OF CARE empiric abx empiric Tamiflu urine cx + GNB, blood x prel negative ID and neuro follow CT head no acute IC pathology LP in am with CSF analysis HIV test negative hepatitis panel-P serology as per ID-P empiric Nystatin, per ID - atypical oral thrush, r/o HIV pain management Pyridium prn a/emetic prn DVT prophylaxis monitor renal parameters, lytes, correct lytes as seeded, avoid nephrotoxic creat trending down patient continue to deny use of amphetamine, stating his roommate is using and likely gave to him w/out his knowledge? case discussed and evaluated by supervising physician Subjective Allergies: Coded Allergies: No Known Allergies (Unverified , 07/17/17) Subjective afebrile, no leukocytosis headache better, flushing, diaphoresis HIV test negative Objective Last 24 Hour Vital Signs Date Time Temp Pulse Resp B/P (MAP) Pulse Ox O2 Delivery O2 Flow Rate FiO2 07/19/17 09:45 97.7 07/19/17 08:45 162/120 07/19/17 08:00 97.9 110 20 165/120 100 07/19/17 08:00 113 07/19/17 04:00 115 07/19/17 04:00 97.7 108 18 182/126 99 07/19/17 00:00 99.8 119 18 168/108 96 07/19/17 00:00 110 07/18/17 20:00 99.8 19 19 154/112 96 07/18/17 20:00 110 07/18/17 16:00 113 07/18/17 16:00 97.7 89 20 138/83 98 Room Air Intake and Output 07/18/17 07/19/17 19:00 07:00 Intake Total 400 ml 460 ml Balance 400 ml 460 ml Intake Oral 400 ml 460 ml # Voids 3 3 # Bowel Movements 1 Objective General Appearance: WD/WN, in NAD, diaphoretic, Lines, tubes and drains: peripheral HEENT: normocephalic, atraumatic, anicteric, mucous membranes moist, thrush - tongue with white patches Neck: normal alignment, normal inspection Respiratory/Chest: lungs clear, normal breath sounds, no respiratory distress, no accessory muscle use Cardiovascular/Chest: normal peripheral pulses, regular rhythm, tachycardia - ST on tele Abdomen: normal bowel sounds, non tender, soft Extremities: normal range of motion, non-tender, no calf tenderness, normal capillary refill Skin Exam: warm/dry Neurologic: alert, oriented x 3, responsive Musculoskeletal: normal muscle bulk Microbiology Date/Time Source Procedure Growth Status 07/17/17 18:45 Blood Blood Culture - Preliminary NO GROWTH AFTER 24 HOURS Resulted 07/17/17 18:40 Blood Blood Culture - Preliminary NO GROWTH AFTER 24 HOURS Resulted 07/18/17 10:30 Nasopharynx Influenza Types A,B Antigen (DEV) - Final Complete 07/17/17 19:15 Urine,Clean Catch Urine Culture - Preliminary Gram Negative Bacillus 1 Resulted Laboratory Tests 07/18/17 13:03: Prothrombin Time 11.9H, Prothromb Time International Ratio 1.1, Activated Partial Thromboplast Time 27 07/19/17 06:00: White Blood Count 6.3, Red Blood Count 5.46, Hemoglobin 16.2, Hematocrit 48.3, Mean Corpuscular Volume 89, Mean Corpuscular Hemoglobin 29.8, Mean Corpuscular Hemoglobin Concent 33.6, Red Cell Distribution Width 12.7, Platelet Count 209, Mean Platelet Volume 8.4, Neutrophils (%) (Auto) 64.2, Lymphocytes (%) (Auto) 17.3L, Monocytes (%) (Auto) 16.5H, Eosinophils (%) (Auto) 1.3, Basophils (%) ( Auto) 0.7, Erythrocyte Sedimentation Rate 21H, Sodium Level 135L, Potassium Level 3.7, Chloride Level 100, Carbon Dioxide Level 28, Anion Gap 7, Blood Urea Nitrogen 14, Creatinine 1.3, Estimat Glomerular Filtration Rate 57.5, Glucose Level 83, Calcium Level 8.7, Total Bilirubin 0.2, Aspartate Amino Transf (AST/ SGOT) 34, Alanine Aminotransferase (ALT/SGPT) 43, Alkaline Phosphatase 55, C- Reactive Protein, Quantitative 11.4H, Total Protein 6.6, Albumin 2.8L, Globulin 3.8, Albumin/Globulin Ratio 0.7L, Rapid Plasma Reagin [Pending], West Nile Virus IgG Antibody [Pending], West Nile Virus IgM Antibody [Pending], Hepatitis A IgM Antibody [Pending], Hepatitis B Surface Antigen [Pending], Hepatitis B Core IgM Antibody [Pending], Hepatitis C Antibody [Pending], HIV-1 RNA (PCR) log10 Value [Pending], HIV-1 RNA Ultraquantitative (PCR) [Pending], HIV (1&2) Antibody Rapid Negative Current Medications Medications (Trade) Dose Ordered Sig/Charla Route PRN Reason Start Time Stop Time Status Last Admin Dose Admin Acetaminophen (Tylenol) 650 mg Q4H PRN ORAL fever 07/17/17 23:30 08/16/17 23:29 Albuterol/ Ipratropium (Albuterol/ Ipratropium) 3 ml EVERY 4 HOURS PRN HHN Shortness of Breath 07/17/17 23:30 07/22/17 23:29 Ceftriaxone Sodium 2 gm/ Sodium Chloride 55 ml @ 110 mls/hr Q12HR@0200,1400 IVPB 07/18/17 14:00 07/25/17 13:59 07/19/17 01:44 Clonidine HCl (Catapres tab) 0.2 mg Q6H PRN ORAL SYS BP > 160 07/19/17 08:15 08/18/17 08:14 07/19/17 08:45 Heparin Sodium (Porcine) (Heparin 5000 units/ml) 5,000 units EVERY 12 HOURS SUBQ 07/18/17 09:00 08/17/17 08:59 07/19/17 08:52 Morphine Sulfate (Morphine Sulfate) 2 mg Q4H PRN IVP Moderate Pain (Pain Scale 4-6) 07/18/17 13:15 07/25/17 13:14 07/19/17 09:15 Nystatin (Nystatin) 5 ml QID ORAL 07/18/17 13:00 07/25/17 12:59 07/19/17 08:44 Ondansetron HCl (Zofran) 4 mg Q6H PRN IVP Nausea & Vomiting 07/17/17 23:30 08/16/17 23:29 Oseltamivir Phosphate (Tamiflu) 30 mg TWICE A DAY ORAL 07/18/17 11:00 07/22/17 18:01 07/19/17 08:44 Phenazopyridine HCl (Pyridium) 100 mg DAILY PRN ORAL dysuria 07/17/17 23:30 08/16/17 23:29 Polyethylene Glycol (Miralax) 17 gm DAILYPRN PRN ORAL Constipation 07/17/17 23:30 08/16/17 23:29 Temazepam (Restoril) 15 mg HSPRN PRN ORAL Insomnia 07/17/17 23:30 07/24/17 23:29 07/18/17 20:42 Vancomycin HCl (Vanco rx to dose) 1 ea DAILY PRN MISC per protocol 07/18/17 02:30 08/17/17 02:29 Vancomycin HCl/ Dextrose 250 ml @ 166.667 mls/hr Q24H IVPB 07/18/17 04:00 07/23/17 03:59 07/19/17 04:10 Bandar (Willa)Rossana NP Jul 19, 2017 12:31
[2017-07-19] MEDS ORDERED: Tubing IV Secondary IV ONE (15:17)
[2017-07-19 16:00] VITALS: BP 149/100
[2017-07-19 20:00] VITALS: BP 151/96
--- NOTE | 2017-07-19 23:05 | Consultation ---
DATE OF CONSULTATION: 07/18/2017 NEUROLOGICAL CONSULTATION REQUESTING PHYSICIAN: Boyd Sue M.D. HISTORY OF PRESENT ILLNESS: The patient is a 56-year-old man seen in neurological consultation to evaluate several days history of progressive severe headache. The patient informed me that approximately four days prior to admission, he started to develop mild headache, generalized aches, pains, nausea, developed blurriness of vision, which was rapidly progressing over the last days. The patient indicates that the similar symptoms presented by his friend. As he developed a severe throbbing headache, paramedics were called to the scene. He reportedly had no associated symptomatology. No shortness of breath. No chest pain. No abdominal pain. There was no evidence of nausea or vomiting at that time. According to EMS, there was some drug needles noted. The patient was brought to emergency room with blood pressure 151/93, temperature 101.8, heart rate of 133, and respiration of 25. Acacia Coma scale was 15. His EKG normal sinus rhythm, heart rate of 120. Chest x-ray, no acute disease. Laboratory work was obtained. CBC study with WBC 15.6, RBC 6.45, and hemoglobin 19.1. Urinalysis, WBC too numerous to count, leukocyte esterase 3+ and 3+ protein. Toxicology panel positive for amphetamine and benzodiazepine. His chemistry panel with creatinine 1.7 and glucose 111. The patient was described as diaphoretic, but fully awake and alert, appears no focal neurological deficit. There was no evidence of hypoxia. Following admission, symptoms are not improving. He continued to have severe headache and Neurology consult was requested. The patient described his condition as follow, he has "excruciating" headaches predominantly retro-orbital, feeling hot to his head, face, shoulders, upper back, and arms, blurriness of vision, sensitivity to sound and light. Nausea and fever. The patient described also having chills, cough and running nose. REVIEW OF SYSTEMS: A 12-point review of symptoms was obtained. The patient was denying shortness of breath. There was no chest pain. No abdominal pain. No urine or bowel incontinence. No involuntary movement. The patient has a history of . This required treatment with opiates in the past, although the patient categorically denying use of opiates stating that he went through many treatments in the past. Currently, he is limited himself to Tylenol and aspirin or nonsteroidal agents for pain control. 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 Currently, he is unemployed. He denies using alcohol or drug abuse. Nonsmoker. PHYSICAL EXAMINATION: GENERAL: Well-developed and well-nourished man, in mild distress, feeling "very hot." VITAL SIGNS: Blood pressure 148/103, heart rate of 120, temperature 97.6. HEENT: There is no evidence of trauma. No otorrhea. No rhinorrhea. NECK: Somewhat rigid. MUSCULOSKELETAL: Unremarkable except some deformities both feet. Skin of the face, head, neck, upper torso flushed, hot to touch. Peripheral pulses 1+ symmetric. MENTAL STATUS: He is fully alert and oriented x3 with no evidence of aphasia or apraxia. Cognitive function normal. He is anxious, concerned with his condition. CRANIAL NERVE II: Pupils both responding to light and accommodation. Extraocular movement intact. No nystagmus. CRANIAL NERVE V: Normal corneal responses. CRANIAL NERVE VII: No facial asymmetry. CRANIAL NERVE VIII: Grossly normal hearing. CRANIAL NERVE XI THROUGH XII: With normal limits. MOTOR EXAMINATION: Normal muscle tone. Strength 5/5 in all extremities. No involuntary movement. Deep tendon reflexes 1+ bilaterally symmetric. Plantar response is flexor. No pathological responses. SENSORY EXAMINATION: Normal to pin stimulation. Gait not tested, but reported able to ambulate without assistance. IMPRESSION: 1. New onset of progressive headache, fever, chills, probably representing a viral meningitis. 2. Urinary tract infection, rule out urosepsis. 3. Hypertension, poor control. 4. Autoimmune arthritis. DISCUSSION: The patient indicated preexistent hypertension and arthritis, previously treated with steroids and nonsteroidal agents with pain control by opiates. The patient denies any ongoing medical issues except hypertension, which appears to be compliant. The patient presented with symptomatology closely resembling sepsis, viral encephalitis. Possible causes not clear, but will need additional diagnostic studies including stat CT of the brain, LP and get cultures for HIV, westnile virus, herpes simplex. Meanwhile, the patient started on IV fluids and antibiotics. Consider more affective pain management, may use small doses of Dilaudid. The patient was started on Tamiflu, Zofran, nystatin, and p.r.n. Tylenol/morphine. Thank you for allowing me to see this interesting patient in neurological consultation. Marquise Jordan M.D. DR: JAMEEL JOB#: [id number] CC:
[2017-07-20] VITALS: BP 168/122
[2017-07-20] MEDS: cloNIDine 0.2mg Tab ORAL PRN (01:14)
[2017-07-20] MEDS: cefTRIAXone 2 GM in NS 55 ML IVPB SCH ×2 (01:49→14:59)
[2017-07-20] MEDS: Morphine Sulfate 4mg/ml Inj IVP PRN (03:29)
[2017-07-20 04:00] VITALS: BP 158/103
[2017-07-20] MEDS ORDERED: D5W IVPB SCH (05:00)
[2017-07-20] MEDS ORDERED: VANCOMYCIN IVPB SCH (05:00)
[2017-07-20 08:00] VITALS: BP 151/101
[2017-07-20] MEDS: Heparin 5000 units/ml inj SUBQ SCH ×2 (09:00→21:08)
[2017-07-20] MEDS: Nystatin Susp 500,000 units/5ml ORAL SCH ×4 (09:17→21:07)
--- NOTE | 2017-07-20 10:01 | Diagnostic Imaging Report ---
Indication: Shortness of breath Technique: One view of the chest Comparison: July 17, 2017 Findings: Lungs and pleural spaces are clear. The heart is enlarged. The aorta is tortuous. Upper mediastinum is unremarkable. Again demonstrated is evidence of prior left shoulder surgery. Findings are unchanged Impression: Unchanged, over 3 days, findings as above.
--- NOTE | 2017-07-20 11:52 | Infectious Diseases Prog Note ---
Assessment/Plan Assessment/Plan Assessment: Viral syndrome- suspect Influenza despite neg screen test( sensitive only 60-70% ) -? drug withdrawal vs bacteremia; r/o acute HIV -CXR: Cardiomegaly. No acute process -Bcx NTD -UDS + amphetamines, benzos HEADACHE- suspect aseptic meningitis to viral process- lower suspicion for bacterial meningitis; improving Fever/leukocytosis- improving Tongue white patches- ?thrush- not classical; r/o HIV -rapid HIV neg; HIV VL p pyuria, no UTI symptoms -u/a WBC TNCT, nit neg, leik +3; ucx 50-60K GNB JOAQUIN, improving Meth use (denied to me but UDS+) PLan: -Continue empiric IV Vancomycin #3 and Ceftriaxone 2g IV bid #3pending Bcx and CSF -if Bcx remains negative, and CSF profile not consistent with bacterial meningitis, can d/c Abx -07/18 SP Cefepime #1 -Cont empiric Tamiflu (high suspicion for Flu) #08/19 -f/u Influenza PCR; droplets precautions - LP to be done -CSF analysis, cx, WNV ab, VDRL -f/u: HIV VL, UDS, hepatitis panel, WNV ab, RPR -continue empiric nystatin swallow #08/19-14 and monitor tongue lesions if improvement -f/u cx -Monitor CBC/BMP, temperatures Thank you for this consultation. Discussed with RN and primary team. Subjective Allergies: Coded Allergies: No Known Allergies (Unverified , 07/17/17) Subjective afebrile in >48hrs leukocytosis resolved Bcx NTD rapid HIV neg LP today Headache better Objective Vital Signs Last 24 Hour Vital Signs Date Time Temp Pulse Resp B/P (MAP) Pulse Ox O2 Delivery O2 Flow Rate FiO2 07/20/17 08:00 97.0 85 18 151/101 94 07/20/17 04:10 98.9 07/20/17 04:00 98.0 83 20 158/103 94 07/20/17 01:14 168/122 07/20/17 00:00 98.9 96 22 168/122 98 07/20/17 00:00 93 07/19/17 20:00 88 07/19/17 20:00 97.8 88 18 151/96 97 07/19/17 16:00 97.3 93 20 149/100 96 07/19/17 16:00 101 07/19/17 12:00 98.4 113 20 151/115 95 07/19/17 12:00 105 Height (Feet): 5 Height (Inches): 8.00 Weight (Pounds): 158 Objective General Appearance: alert,mild distress due to headache Head: normocephalic, atraumatic Eyes: bilateral eye normal inspection, bilateral eye PERRL, bilateral eye EOMI ENT: normal ENT inspection, normal pharynx, normal voice, moist mucus membranes ; tongue with white patches Neck: normal inspection, full range of motion, supple Respiratory: normal inspection, lungs clear, normal breath sounds, no respiratory distress, no retraction, no wheezing, speaking full sentences, chest symmetrical Cardiovascular : no edema, tachycardia) Gastrointestinal: normal inspection, non tender, soft, non-distended, no guarding Genitourinary: no CVA tenderness Musculoskeletal: normal inspection, back normal, normal range of motion, non- tender Skin: flushed skin, blanching in torso and back Microbiology Date/Time Source Procedure Growth Status 07/17/17 18:45 Blood Blood Culture - Preliminary NO GROWTH AFTER 48 HOURS Resulted 07/17/17 18:40 Blood Blood Culture - Preliminary NO GROWTH AFTER 48 HOURS Resulted 07/18/17 10:30 Nasopharynx Influenza Types A,B Antigen (DEV) - Final Complete 07/17/17 19:15 Urine,Clean Catch Urine Culture - Preliminary Gram Negative Bacillus 1 Resulted Laboratory Tests Test 07/20/17 03:45 Vancomycin Level Trough 2.7 ug/mL (5.0-12.0) L Current Medications Medications (Trade) Dose Ordered Sig/Charla Route PRN Reason Start Time Stop Time Status Last Admin Dose Admin Acetaminophen (Tylenol) 650 mg Q4H PRN ORAL fever 07/17/17 23:30 08/16/17 23:29 Albuterol/ Ipratropium (Albuterol/ Ipratropium) 3 ml EVERY 4 HOURS PRN HHN Shortness of Breath 07/17/17 23:30 07/22/17 23:29 Ceftriaxone Sodium 2 gm/ Sodium Chloride 55 ml @ 110 mls/hr Q12HR@0200,1400 IVPB 07/18/17 14:00 07/25/17 13:59 07/20/17 01:49 Clonidine HCl (Catapres tab) 0.2 mg Q6H PRN ORAL SYS BP > 160 07/19/17 08:15 08/18/17 08:14 07/20/17 01:14 Heparin Sodium (Porcine) (Heparin 5000 units/ml) 5,000 units EVERY 12 HOURS SUBQ 07/18/17 09:00 08/17/17 08:59 07/19/17 20:50 Morphine Sulfate (Morphine Sulfate) 2 mg Q4H PRN IVP Moderate Pain (Pain Scale 4-6) 07/18/17 13:15 07/25/17 13:14 07/20/17 03:29 Nystatin (Nystatin) 5 ml QID ORAL 07/18/17 13:00 07/25/17 12:59 07/20/17 09:17 Ondansetron HCl (Zofran) 4 mg Q6H PRN IVP Nausea & Vomiting 07/17/17 23:30 08/16/17 23:29 Oseltamivir Phosphate (Tamiflu) 30 mg TWICE A DAY ORAL 07/18/17 11:00 07/22/17 18:01 07/20/17 09:17 Phenazopyridine HCl (Pyridium) 100 mg DAILY PRN ORAL dysuria 07/17/17 23:30 08/16/17 23:29 Polyethylene Glycol (Miralax) 17 gm DAILYPRN PRN ORAL Constipation 07/17/17 23:30 08/16/17 23:29 Temazepam (Restoril) 15 mg HSPRN PRN ORAL Insomnia 07/17/17 23:30 07/24/17 23:29 07/20/17 01:49 Vancomycin HCl (Vanco rx to dose) 1 ea DAILY PRN MISC per protocol 07/18/17 02:30 08/17/17 02:29 Vancomycin/Sodium Chloride 250 ml @ 166.667 mls/hr Q12HR@0500,1700 IVPB 07/20/17 17:00 07/25/17 16:59 Yamileth Myles M.D. Jul 20, 2017 11:52
[2017-07-20 12:00] VITALS: BP 156/116
--- NOTE | 2017-07-20 12:49 | Neurology Progress Note ---
Interim History Interim History ROS Limited/Unobtainable: No Complaints: SALGUERO,L face ache,foggy Events: feel better Objective Physical Exam Last Vital Signs Date Time Temp Pulse Resp B/P (MAP) Pulse Ox O2 Delivery O2 Flow Rate FiO2 07/20/17 12:00 97.9 86 18 156/116 95 07/20/17 08:30 Room Air 21 07/18/17 02:45 1.0 Laboratory Tests Test 07/20/17 03:45 Vancomycin Level Trough 2.7 ug/mL (5.0-12.0) L General: well developed, well nourished, no acute distress Head: normocophalic, atraumatic Neck: no rigidity Neurologic Exam Mental Status: awake, alert, oriented x4, normal cognition, good mathematical skills, normal recent memory, normal remote memory, preserved visuospatial function Speech: normal speech, no dysarthia Language: normal language, no aphasia Cranial Nerve II: fundus normal, visual robert, no papilledema Cranial Nerves III, IV, : PERRLA, EOMI, pupils Cranial Nerve V: normal facial sensations, temporales function normal, masseters function normal, pterygoids function normal Cranial Nerve VII: no facial asymmetry, normal facial expressions Cranial Nerve VIII: normal hearing, no nystagmus Cranial Nerve IX: normal palate elevation, gag response Cranial Nerve X: no voice hoarseness Cranial Nerve XI: SCM symmetric, trapezii function normal Cranial Nerve XII: tongue midline, no tongue atrophy/fasciculations Motor System: normal muscle tone, strength 5/5, no involuntary movement, no muscle wasting Sensory: normal pinprick, normal light touch, normal position sense, normal graphesthesia Coordination: normal finger to nose bilaterally, normal heel to riggs bilaterally, negative Romberg test Deep Tendon Reflexes: 2+ bicep (L), 2+ bicep (R), 2+ tricep (L), 2+ tricep (R) , 2+ brachioradialis (L), 2+ brachioradialis (R), 2+ knee (L), 2+ knee (R), 2+ ankle (L), 2+ ankle (R) Stance: normal Gait: stable, normal regular, heel + toe gait Impression/Recommendations Problems: (1) Acute viral syndrome (2) Sepsis Status: stable Recommendations #[id number] stat CT brain stat LP pending d/w staff MILVIA MELGAR Jul 20, 2017 12:49
--- NOTE | 2017-07-20 14:30 | Pre-Procedure Note/Attestation ---
Pre-Procedure Note/Attestation Complete Prior to Procedure Planned Procedure: not applicable Procedure Narrative: Lumbar puncture Indications for Procedure Pre-Operative Diagnosis: Headache Attestation I attest that I discussed the nature of the procedure; its benefits; risks and complications; and alternatives (and the risks and benefits of such alternatives ), prior to the procedure, with the patient (or the patient's legal field representative). I attest that, if there was a reasonable possibility of needing a blood transfusion, the patient (or the patient's legal field representative) was given the [facility] standardized written summary, pursuant to the [place] Blood Safety Act ([place] Health and Safety Code # 1645, as amended). I attest that I re-evaluated the patient just prior to the surgery and that there has been no change in the patient's H&P, except as documented below: JENN CONDE M.D. Jul 20, 2017 14:30
--- NOTE | 2017-07-20 15:03 | Pulmonology Progress Note ---
Assessment/Plan Problems: (1) Acute viral syndrome (2) Sepsis (3) Methamphetamine abuse (4) UTI (urinary tract infection) Assessment/Plan awaiting LP abx as per ID check cultures Subjective ROS Limited/Unobtainable: No Constitutional: Reports: no symptoms HEENT: Repors: no symptoms Respiratory: Reports: no symptoms Allergies: Coded Allergies: No Known Allergies (Unverified , 07/17/17) Objective Last 24 Hour Vital Signs Date Time Temp Pulse Resp B/P (MAP) Pulse Ox O2 Delivery O2 Flow Rate FiO2 07/20/17 12:00 97.9 86 18 156/116 95 07/20/17 08:30 89 18 Room Air 21 07/20/17 08:00 97.0 85 18 151/101 94 07/20/17 04:10 98.9 07/20/17 04:00 98.0 83 20 158/103 94 07/20/17 01:14 168/122 07/20/17 00:00 98.9 96 22 168/122 98 07/20/17 00:00 93 07/19/17 20:00 88 07/19/17 20:00 97.8 88 18 151/96 97 07/19/17 16:00 97.3 93 20 149/100 96 07/19/17 16:00 101 Intake and Output 07/19/17 07/20/17 19:00 07:00 Intake Total 591 ml 236 ml Output Total 400 ml 3000 ml Balance 191 ml -2764 ml Intake Oral 536 ml 236 ml IV Total 55 ml Output Urine Total 400 ml 3000 ml # Voids 2 6 Objective General Appearance: alert, obese, NAD Lines, tubes and drains: peripheral HEENT: normocephalic, atraumatic, anicteric, mucous membranes moist, PERRL Neck: non-tender, supple - no meningeal signs Respiratory/Chest: chest wall non-tender, lungs clear, no respiratory distress , no accessory muscle use Cardiovascular/Chest: normal peripheral pulses, regular rhythm, SR on tele Abdomen: normal bowel sounds, non tender - obese, soft 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, no motor/sensory deficits, alert, oriented x 3, responsive Musculoskeletal: normal muscle bulk Microbiology Date/Time Source Procedure Growth Status 07/17/17 18:45 Blood Blood Culture - Preliminary NO GROWTH AFTER 48 HOURS Resulted 07/17/17 18:40 Blood Blood Culture - Preliminary NO GROWTH AFTER 48 HOURS Resulted 07/18/17 10:30 Nasopharynx Influenza Types A,B Antigen (DEV) - Final Complete 07/17/17 19:15 Urine,Clean Catch Urine Culture - Preliminary Gram Negative Bacillus 1 Resulted Laboratory Tests 07/20/17 03:45: Vancomycin Level Trough 2.7L Current Medications Medications (Trade) Dose Ordered Sig/Charla Route PRN Reason Start Time Stop Time Status Last Admin Dose Admin Acetaminophen (Tylenol) 650 mg Q4H PRN ORAL fever 07/17/17 23:30 08/16/17 23:29 Albuterol/ Ipratropium (Albuterol/ Ipratropium) 3 ml EVERY 4 HOURS PRN HHN Shortness of Breath 07/17/17 23:30 07/22/17 23:29 Ceftriaxone Sodium 2 gm/ Sodium Chloride 55 ml @ 110 mls/hr Q12HR@0200,1400 IVPB 07/18/17 14:00 07/25/17 13:59 07/20/17 14:59 Clonidine HCl (Catapres tab) 0.2 mg Q6H PRN ORAL SYS BP > 160 07/19/17 08:15 08/18/17 08:14 07/20/17 01:14 Heparin Sodium (Porcine) (Heparin 5000 units/ml) 5,000 units EVERY 12 HOURS SUBQ 07/18/17 09:00 08/17/17 08:59 07/19/17 20:50 Morphine Sulfate (Morphine Sulfate) 2 mg Q4H PRN IVP Moderate Pain (Pain Scale 4-6) 07/18/17 13:15 07/25/17 13:14 07/20/17 03:29 Nystatin (Nystatin) 5 ml QID ORAL 07/18/17 13:00 07/25/17 12:59 07/20/17 14:59 Ondansetron HCl (Zofran) 4 mg Q6H PRN IVP Nausea & Vomiting 07/17/17 23:30 08/16/17 23:29 Oseltamivir Phosphate (Tamiflu) 30 mg TWICE A DAY ORAL 07/18/17 11:00 07/22/17 18:01 07/20/17 09:17 Phenazopyridine HCl (Pyridium) 100 mg DAILY PRN ORAL dysuria 07/17/17 23:30 08/16/17 23:29 Polyethylene Glycol (Miralax) 17 gm DAILYPRN PRN ORAL Constipation 07/17/17 23:30 08/16/17 23:29 Temazepam (Restoril) 15 mg HSPRN PRN ORAL Insomnia 07/17/17 23:30 07/24/17 23:29 07/20/17 01:49 Vancomycin HCl (Vanco rx to dose) 1 ea DAILY PRN MISC per protocol 07/18/17 02:30 08/17/17 02:29 Vancomycin/Sodium Chloride 250 ml @ 166.667 mls/hr Q12HR@0500,1700 IVPB 07/20/17 17:00 07/25/17 16:59 AZAEL QUINTANA Jul 20, 2017 15:03
--- NOTE | 2017-07-20 15:04 | Brief Operative Note ---
Immediate Post Operative Note Operative Note Pre-op Diagnosis: Headache Procedure: Lumbar puncture Post-op Diagnosis: same as pre-op Findings: consistent w/pre-op dx studies - Opening pressure 13 closing pressure 7, other Surgeon: Doug CONDE Anesthesia: local Specimen: yes - 8 ml clear CSF Complications: none Condition: stable Fluids: none Estimated Blood Loss: none Drains: none Implant(s) used?: No JENN CONDE M.D. Jul 20, 2017 15:04
--- NOTE | 2017-07-20 15:28 | Diagnostic Imaging Report ---
Indication: Headache Technique: Informed consent obtained prior to consent of the procedure. Procedure timeout performed. With the patient prone, skin of the lumbar region was sterilely prepped and draped. Fluoroscopy used to localize the optimal puncture site, at L3-4. Using a right subfrontal approach, a 22-gauge spinal needle was directed into the thecal sac. Spontaneous return of cerebrospinal fluid observed. Opening pressure obtained, found to be 13 cm of H2O. Total 8 mL of clear CSF obtained, divided into 4 vials, sent to the lab for analysis. Closing pressure obtained, found to be 7 cm of H2O. The patient tolerated the procedure well, without immediate complication. Total fluoroscopy time 0.3 minutes. Total dose area product 5.6 dGycm2 Comparison: none Findings: As above Impression: Successful fluoroscopy-guided lumbar puncture, as described
[2017-07-20 16:00] VITALS: BP 148/97
[2017-07-20] MEDS: Vancomycin 750mg/NS 250ml IVPB SCH (18:33)
[2017-07-20 20:00] VITALS: BP 145/87
[2017-07-21] VITALS (10 sets, daily range): BP systolic 138–180; BP diastolic 68–126
[2017-07-21] MEDS: cefTRIAXone 2 GM in NS 55 ML IVPB SCH (01:38)
[2017-07-21] MEDS: Vancomycin 750mg/NS 250ml IVPB SCH (04:52)
[2017-07-21] MEDS: cloNIDine 0.2mg Tab ORAL PRN ×2 (06:43→19:36)
[2017-07-21] MEDS: Heparin 5000 units/ml inj SUBQ SCH ×2 (07:36→21:00)
[2017-07-21] MEDS: Nystatin Susp 500,000 units/5ml ORAL SCH ×4 (07:36→21:00)
[2017-07-21] MEDS ORDERED: Albuterol/Ipratropium 3ml neb HHN PRN (09:00)
[2017-07-21] MEDS ORDERED: Morphine Sulfate 4mg/ml Inj IVP PRN (09:15)
--- NOTE | 2017-07-21 10:57 | Infectious Diseases Prog Note ---
Assessment/Plan Assessment/Plan Assessment: Viral syndrome- suspect Influenza despite neg screen test( sensitive only 60-70% ) -? drug withdrawal vs bacteremia; r/o acute HIV -CXR: Cardiomegaly. No acute process -Bcx NTD -UDS + amphetamines, benzos HEADACHE- aseptic meningitis likely 2ry to FLu (WBC normal however borderline low glucose and borderline elevated protein). r/o Acute HIV. RPR very low titers are positive, VDRL pending. -s/p LP 07/20: OP 13cm H2O, WBC 2, gluc 43, prot 95; cx NTD -serum : WNV ab neg Fever/leukocytosis- improving Positive RPR-? prior infections vs current- very low titers, lower suspicion for neurosyphilis. CSF abnormalities can be explained by likely influenza infection. f/u final CSF VDRL -RPR 1:1; CSF VDRL p -Patient referred being treated with one PNC shot about 2 years ago, he think his titers were 1:612, LP was not done at that point Tongue white patches- ?thrush- not classical; r/o HIV -rapid HIV neg; HIV VL p pyuria, no UTI symptoms -u/a WBC TNCT, nit neg, leik +3; ucx 50-60K K. pna ( watts S) JOAQUIN, improving Meth use (denied to me but UDS+) -hep panel neg PLan: -d/c empiric IV Vancomycin #4 and Ceftriaxone #4 -PNC 2.4 IM x1 for possible syphilis re-infection -f/u CSF VDRL -needs outpt f/u of RPR titers in 3-6months -2/3 SP Cefepime #1 -Cont empiric Tamiflu (high suspicion for Flu) #4/7 -f/u Influenza PCR; droplets precautions - check FTA-abs -f/u: HIV VL, CSF VDRL -continue empiric nystatin swallow #/-14 and monitor tongue lesions if improvement -ok for discharge -f/u cx -Monitor CBC/BMP, temperatures Thank you for this consultation. Discussed with RN and primary team. Subjective Allergies: Coded Allergies: No Known Allergies (Unverified , 07/17/17) Subjective afebrile in >72hrs no leukocytosis Bcx NTD s/p LP yesterday feeling better Objective Vital Signs Last 24 Hour Vital Signs Date Time Temp Pulse Resp B/P (MAP) Pulse Ox O2 Delivery O2 Flow Rate FiO2 07/21/17 08:35 98.4 07/21/17 08:00 98.4 86 18 147/108 97 Room Air 07/21/17 06:43 170/120 07/21/17 06:35 97.3 91 20 170/120 97 07/21/17 04:00 97.7 90 20 140/102 97 07/21/17 00:00 98.0 93 18 147/74 97 07/20/17 20:00 97.0 93 20 145/87 96 07/20/17 19:20 82 18 Room Air 21 07/20/17 16:00 97.5 93 18 148/97 96 07/20/17 12:00 97.9 86 18 156/116 95 Height (Feet): 5 Height (Inches): 8.00 Weight (Pounds): 158 Objective General Appearance: alert,mild distress due to headache Head: normocephalic, atraumatic Eyes: bilateral eye normal inspection, bilateral eye PERRL, bilateral eye EOMI ENT: normal ENT inspection, normal pharynx, normal voice, moist mucus membranes ; tongue with white patches Neck: normal inspection, full range of motion, supple Respiratory: normal inspection, lungs clear, normal breath sounds, no respiratory distress, no retraction, no wheezing, speaking full sentences, chest symmetrical Cardiovascular : no edema, tachycardia) Gastrointestinal: normal inspection, non tender, soft, non-distended, no guarding Genitourinary: no CVA tenderness Musculoskeletal: normal inspection, back normal, normal range of motion, non- tender Skin: flushed skin, blanching in torso and back Microbiology Date/Time Source Procedure Growth Status 07/20/17 14:40 Cerebral Spinal Fluid Gram Stain Pending Resulted 07/20/17 14:40 Cerebral Spinal Fluid CSF Culture - Preliminary NO GROWTH Resulted Laboratory Tests Test 07/20/17 14:40 CSF Appearance Clear CSF Color Colorless CSF WBC 2 /CU MM (0-5) CSF RBC 3 /CU MM CSF Neutrophils % % CSF Lymphocytes % % CSF Monocytes % % CSF Crenated Cells % CSF Glucose 43 mg/dL (50-80) L CSF Total Protein 95 MG/DL (15-45) H CSF VDRL Pending Current Medications Medications (Trade) Dose Ordered Sig/Charla Route PRN Reason Start Time Stop Time Status Last Admin Dose Admin Acetaminophen (Tylenol) 650 mg Q4H PRN ORAL fever 07/21/17 07:30 08/16/17 23:29 07/21/17 07:36 Albuterol/ Ipratropium (Albuterol/ Ipratropium) 3 ml EVERY 4 HOURS PRN HHN Shortness of Breath 07/21/17 09:00 07/22/17 23:29 Ceftriaxone Sodium 2 gm/ Sodium Chloride 55 ml @ 110 mls/hr Q12HR@0200,1400 IVPB 07/21/17 14:00 07/25/17 13:59 Clonidine HCl (Catapres tab) 0.2 mg Q6H PRN ORAL SYS BP > 160 07/21/17 08:15 08/18/17 08:14 07/21/17 06:43 Heparin Sodium (Porcine) (Heparin 5000 units/ml) 5,000 units EVERY 12 HOURS SUBQ 07/21/17 09:00 08/17/17 08:59 Morphine Sulfate (Morphine Sulfate) 2 mg Q4H PRN IVP Moderate Pain (Pain Scale 4-6) 07/21/17 09:15 07/25/17 13:14 Nystatin (Nystatin) 5 ml QID ORAL 07/21/17 09:00 07/25/17 12:59 07/21/17 07:36 Ondansetron HCl (Zofran) 4 mg Q6H PRN IVP Nausea & Vomiting 07/21/17 11:30 08/16/17 23:29 Oseltamivir Phosphate (Tamiflu) 30 mg TWICE A DAY ORAL 07/21/17 09:00 07/22/17 18:01 07/21/17 07:56 Phenazopyridine HCl (Pyridium) 100 mg DAILY PRN ORAL dysuria 07/21/17 09:00 08/16/17 23:29 Polyethylene Glycol (Miralax) 17 gm DAILYPRN PRN ORAL Constipation 07/21/17 23:30 08/16/17 23:29 Temazepam (Restoril) 15 mg HSPRN PRN ORAL Insomnia 07/21/17 23:30 07/24/17 23:29 Vancomycin HCl (Vanco rx to dose) 1 ea DAILY PRN MISC per protocol 07/21/17 09:00 08/17/17 02:29 Vancomycin/Sodium Chloride 250 ml @ 166.667 mls/hr Q12HR@0500,1700 IVPB 07/21/17 17:00 07/25/17 16:59 Yamileth Myles M.D. Jul 21, 2017 10:57
[2017-07-21] MEDS ORDERED: cefTRIAXone 2 GM in NS 55 ML IVPB SCH (14:00)
[2017-07-21] MEDS ORDERED: Bicillin LA 2,400,000 units IM ONE (15:00)
[2017-07-21] MEDS ORDERED: Vancomycin 750mg/NS 250ml 250 ML IVPB SCH (17:00)
[2017-07-21] MEDS ORDERED: TAMIFLU45 MG ORAL (17:15)
[2017-07-21] MEDS ORDERED: NYSTATIN100000 UN1 ORAL (17:16)
[2017-07-21] MEDS ORDERED: Oseltamivir 75mg cap ORAL SCH (18:00)
--- NOTE | 2017-07-21 19:30 | Pulmonology Progress Note ---
Assessment/Plan Problems: (1) Acute viral syndrome (2) Sepsis (3) Methamphetamine abuse (4) UTI (urinary tract infection) Assessment/Plan dc home abx as per ID check cultures improivng Subjective ROS Limited/Unobtainable: No Constitutional: Reports: no symptoms HEENT: Repors: no symptoms Respiratory: Reports: no symptoms Allergies: Coded Allergies: No Known Allergies (Unverified , 07/17/17) Objective Last 24 Hour Vital Signs Date Time Temp Pulse Resp B/P (MAP) Pulse Ox O2 Delivery O2 Flow Rate FiO2 07/21/17 15:46 97.5 89 20 143/68 95 07/21/17 11:30 98.0 85 20 138/81 96 07/21/17 08:35 98.4 07/21/17 08:00 98.4 86 18 147/108 97 Room Air 07/21/17 06:54 82 18 Room Air 21 07/21/17 06:43 170/120 07/21/17 06:35 97.3 91 20 170/120 97 07/21/17 04:00 97.7 90 20 140/102 97 07/21/17 00:00 98.0 93 18 147/74 97 07/20/17 20:00 97.0 93 20 145/87 96 Intake and Output 07/20/17 07/21/17 19:00 07:00 Intake Total 175 ml Output Total 1150 ml Balance -975 ml Intake Oral 120 ml IV Total 55 ml Output Urine Total 1150 ml # Voids 3 # Bowel Movements 1 Objective General Appearance: alert, obese, NAD Lines, tubes and drains: peripheral HEENT: normocephalic, atraumatic, anicteric, mucous membranes moist, PERRL Neck: non-tender, supple - no meningeal signs Respiratory/Chest: chest wall non-tender, lungs clear, no respiratory distress , no accessory muscle use Cardiovascular/Chest: normal peripheral pulses, regular rhythm, SR on tele Abdomen: normal bowel sounds, non tender - obese, soft 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, no motor/sensory deficits, alert, oriented x 3, responsive Musculoskeletal: normal muscle bulk Microbiology Date/Time Source Procedure Growth Status 07/20/17 14:40 Cerebral Spinal Fluid Gram Stain - Final Resulted 07/20/17 14:40 Cerebral Spinal Fluid CSF Culture - Preliminary NO GROWTH Resulted Current Medications Medications (Trade) Dose Ordered Sig/Charla Route PRN Reason Start Time Stop Time Status Last Admin Dose Admin Acetaminophen (Tylenol) 650 mg Q4H PRN ORAL fever 07/21/17 07:30 08/16/17 23:29 07/21/17 07:36 Albuterol/ Ipratropium (Albuterol/ Ipratropium) 3 ml EVERY 4 HOURS PRN HHN Shortness of Breath 07/21/17 09:00 07/22/17 23:29 Clonidine HCl (Catapres tab) 0.2 mg Q6H PRN ORAL SYS BP > 160 07/21/17 08:15 08/18/17 08:14 07/21/17 06:43 Heparin Sodium (Porcine) (Heparin 5000 units/ml) 5,000 units EVERY 12 HOURS SUBQ 07/21/17 09:00 08/17/17 08:59 Morphine Sulfate (Morphine Sulfate) 2 mg Q4H PRN IVP Moderate Pain (Pain Scale 4-6) 07/21/17 09:15 07/25/17 13:14 Nystatin (Nystatin) 5 ml QID ORAL 07/21/17 09:00 07/25/17 12:59 07/21/17 17:22 Ondansetron HCl (Zofran) 4 mg Q6H PRN IVP Nausea & Vomiting 07/21/17 11:30 08/16/17 23:29 Oseltamivir Phosphate (Tamiflu) 75 mg TWICE A DAY ORAL 07/21/17 18:00 07/26/17 17:59 07/21/17 17:22 Phenazopyridine HCl (Pyridium) 100 mg DAILY PRN ORAL dysuria 07/21/17 09:00 08/16/17 23:29 Polyethylene Glycol (Miralax) 17 gm DAILYPRN PRN ORAL Constipation 07/21/17 23:30 08/16/17 23:29 Temazepam (Restoril) 15 mg HSPRN PRN ORAL Insomnia 07/21/17 23:30 07/24/17 23:29 AZAEL QUINTANA Jul 21, 2017 19:30
[2017-07-21] MEDS ORDERED: Miralax 17gm pkt ORAL PRN (23:30)
[2017-07-22 03:14] VITALS: BP_SYST 163; BP_SYST 175; BP_DIAS 122; BP_DIAS 125
[2017-07-22 03:19] VITALS: BP 173/125
[2017-07-22] MEDS: cloNIDine 0.2mg Tab ORAL PRN (03:19)
--- NOTE | 2017-07-23 15:42 | Discharge Summary ---
Discharge Summary Hospital Course Date of Admission Jul 17, 2017 at 20:00 Date of Discharge Jul 22, 2017 at 08:10 Admitting Diagnosis viral illness HPI Jorge Pino is a 56 year old male who was admitted on Jul 17, 2017 at 20:00 for Viral Illness Hospital Course [id number] Discharge Discharge Disposition Patient was discharged to home Discharge Diagnoses: Lee Ann Inman NP Jul 23, 2017 15:42
--- NOTE | 2017-07-24 06:30 | Discharge Summary 2 SIG ---
DATE OF ADMISSION: 07/17/2017 DATE OF DISCHARGE: 07/22/2017 CONSULTATION: Yamileth Myles M.D. BRIEF HOSPITAL COURSE: The patient is a 56-year-old male with no past medical history, presented to ED with fever, chills, cough, runny nose, and headache for a week. Symptoms have been progressive worsening. Headache was constant with associated nausea, vomiting, and neck pain. On evaluation at ED, temperature was 101.8. He was tachycardic. Heart rate 133. He was given IV fluids. Blood work showed leukocytosis. WBC of 16. BUN 16 and creatinine 1.7. Urine with too many to count WBC, 2 to 4 RBCs, and 3+ leukocyte esterase. Rapid influenza screen test was negative. The patient denied using drugs. Urine toxicology was positive for amphetamine and benzodiazepine. He was started empirically on vancomycin and Tamiflu. He had whitish lesions on the oral cavity, possibly oral thrush. He was given nystatin. He underwent neurological evaluation with Dr. Jordan. He continued to have severe headaches predominantly retro-orbital and feeling hot on his head, face, shoulders, upper back, and arms. There was blurriness of vision with sensitivity to sound at night. Human immunodeficiency virus screen was negative. Hepatitis was negative. West Nile negative. RPR with low titers. On 07/20/2017, he underwent lumbar puncture by Radiology. Opening pressure was 13. Culture did not isolate any growth. Urine culture with Klebsiella. He was given ceftriaxone and continued on vancomycin. He was given penicillin for possible RPR infection. Kidney function improved. Leukocytosis resolved. He was then cleared for discharge to complete Tamiflu and to continue with nystatin oral suspension. FINAL DIAGNOSES: 1. Sepsis. 2. Acute viral syndrome. 3. Methamphetamine abuse. 4. Urinary tract infection with Klebsiella. 5. Headache-aseptic meningitis, likely secondary to flu. 6. Positive RPR, possible reinfection. 7. Oral thrush. 8. Acute kidney injury. 9. Methamphetamine use. DISPOSITION: The patient was discharged home. DISCHARGE MEDICATIONS: Refer to medication list. DISCHARGE INSTRUCTIONS: Follow up with PCP in a week. Recheck RPR titers in three to six months. Boyd Sue M.D. I have been assigned to dictate discharge summary on this account and I was not involved in the patient's management. Lee Ann Inman N.P. DR: MARIA EUGENIA JOB#: [id number] CC: [email or web address]
== END 2017-07-22 08:10 | disposition home or self-care (01) | DRG 720 ==
LOC: EDBD 18:10 → EMR 18:40 → 2E 20:00 → EDBEDREQ 07-18 01:08 → 4W 07-21 06:02
PROC: 009U3ZX Drainage of Spinal Canal, Percutaneous Approach, Diagnostic (ICD-10-PCS; principal; 2017-07-20)
PROC: B01BZZZ Fluoroscopy of Spinal Cord (ICD-10-PCS; 2017-07-20)
DX: A41.9 Sepsis, unspecified organism (principal); N17.9 Acute kidney failure, unspecified; G03.0 Nonpyogenic meningitis; I10 Essential (primary) hypertension; F15.10 Other stimulant abuse, uncomplicated; B37.9 Candidiasis, unspecified; N39.0 Urinary tract infection, site not specified; F11.90 Opioid use, unspecified, uncomplicated; J11.1 Influenza due to unidentified influenza virus with other respiratory manifestations; M19.90 Unspecified osteoarthritis, unspecified site; B96.1 Klebsiella pneumoniae [K. pneumoniae] as the cause of diseases classified elsewhere; R51 Headache
CPT/HCPCS: 36415; 70450; 71045; 80053; 80202; 80307; 80329; 81003; 82945; 83605; 84157; 84484; 85025; 85610; 85651; 85730; 86140; 86592; 86703; 86705; 86709; 86710; 86790; 86803; 87040; 87070; 87086; 87181; 87205; 87340; 87536; 89051; 93005; 94664; 99291